=== PATIENT | male | born 1980 | race African-American/Black ===

== ENCOUNTER 2017-04-15 08:15 | Emergency (ER) | payer SELFPAY ==
[~2017-04-15] VITALS: Ht 188 cm; Wt 84.0 kg
[2017-04-15] MEDS ORDERED: ONDANSETRON HCL 4MG/2ML VIAL IV ONE (12:15)
[2017-04-15] MEDS ORDERED: SODIUM CHLORIDE 0.9% 1,000 ML IV ONE (12:15)
[2017-04-15 14:15] VITALS: BP 135/80
== END 2017-04-15 14:17 | disposition home or self-care (01) ==
LOC: ER 13:30
DX: A05.9 Bacterial foodborne intoxication, unspecified (principal); K29.70 Gastritis, unspecified, without bleeding
CPT/HCPCS: 96361; 96374; 99285; J2405; J7030; Z7610

== ENCOUNTER 2018-12-19 12:21 | Emergency (ER) | payer MEDICAID ==
[~2018-12-19] VITALS: Ht 188 cm; Wt 85.0 kg
[2018-12-19] MEDS ORDERED: HYDROCODONE/ACETAMINOPHEN 5/325MG TABLET PO ONE (15:15)
[2018-12-19 16:19] VITALS: BP 122/55
== END 2018-12-19 16:27 | disposition home or self-care (01) ==
LOC: ER 12:21
DX: S42.291A Other displaced fracture of upper end of right humerus, initial encounter for closed fracture (principal); W22.8XXA Striking against or struck by other objects, initial encounter; Y93.89 Activity, other specified; Y92.89 Other specified places as the place of occurrence of the external cause; Y99.8 Other external cause status
CPT/HCPCS: 73140; 99283

== ENCOUNTER 2019-05-02 16:02 | Emergency (ER) | payer MEDICAID, OTHER ==
[~2019-05-02] VITALS: Ht 188 cm; Wt 84.0 kg
[2019-05-02] MEDS ORDERED: NAPROXEN 375MG TABLET PO ONE (16:45)
[2019-05-02 16:46] VITALS: BP 128/68
== END 2019-05-02 17:53 | disposition home or self-care (01) ==
LOC: ER 17:40
DX: M72.2 Plantar fascial fibromatosis (principal); F17.210 Nicotine dependence, cigarettes, uncomplicated; Z98.890 Other specified postprocedural states
CPT/HCPCS: 99282

== ENCOUNTER 2019-09-07 09:10 | Emergency (ER) | payer MEDICAID, OTHER ==
[~2019-09-07] VITALS: Ht 190.5 cm; Wt 78.0 kg
[2019-09-07 10:49] LABS: BASOPHILS % 0.7 % (0.0-2.0); EOSINOPHILS % 5.2 % (0.0-5.0); HEMATOCRIT. 41.3 % (42.0-52.0); HEMOGLOBIN. 14.2 g/dL (14.0-18.0); LYMPHOCYTES % 33.8 % (20.0-50.0); MEAN CORPUSCULAR HEMOGLOBIN 31.5 pg (28.0-32.0); MEAN CORPUSCULAR VOLUME 91.4 fL (80.0-94.0); MEAN PLATELET VOLUME 8.3 fl (7.4-10.4); MONOCYTES % 11.8 % (2.0-8.0); NEUTROPHILS % 48.5 % (40.0-76.0); PLATELET 243 x1000/uL (130-400); RED BLOOD CELL COUNT 4.52 mill/uL (4.7-6.1); RED CELL DISTRIBUTION WIDTH 14.3 % (11.6-14.6)
[2019-09-07 11:03] LABS: CHLORIDE 109 mEq/L (98-107)
[2019-09-07 12:30] VITALS: BP 119/82
== END 2019-09-07 12:30 | disposition home or self-care (01) ==
LOC: ER 09:10
DX: R07.9 Chest pain, unspecified (principal); F17.200 Nicotine dependence, unspecified, uncomplicated
CPT/HCPCS: 36415; 71045; 80053; 83880; 84484; 85025; 93005; 99284; 99406; Z7610

== ENCOUNTER 2020-02-24 10:25 | Emergency (ER) | payer MEDICAID ==
[~2020-02-24] VITALS: Ht 190.5 cm; Wt 84.0 kg
[2020-02-24] MEDS ORDERED: SODIUM CHLORIDE 0.9% 1,000 ML IV ONE (11:09)
[2020-02-24] MEDS ORDERED: KETOROLAC 30MG/ML VIAL IV STA (11:09)
[2020-02-24 11:33] LABS: EOSINOPHILS % 6.9 % (0.0-5.0); HEMATOCRIT. 40.7 % (42.0-52.0); HEMOGLOBIN. 13.4 g/dL (14.0-18.0); LYMPHOCYTES % 35.8 % (20.0-50.0); MEAN CORPUSCULAR HEMOGLOBIN 30.9 pg (28.0-32.0); MEAN CORPUSCULAR VOLUME 93.3 fL (80.0-94.0); MEAN PLATELET VOLUME 8.5 fl (7.4-10.4); MONOCYTES % 10.4 % (2.0-8.0); NEUTROPHILS % 45.9 % (40.0-76.0); PLATELET 246 x1000/uL (130-400); RED BLOOD CELL COUNT 4.36 mill/uL (4.7-6.1); RED CELL DISTRIBUTION WIDTH 14.1 % (11.6-14.6)
[2020-02-24 11:39] LABS: CHLORIDE 110 mEq/L (98-107)
[2020-02-24 11:53] LABS: CLARITY URINE CLEAR (CLEAR); COLOR URINE YELLOW (YELLOW); KETONES URINE NEGATIVE (NEGATIVE); LEUKOCYTE ESTERASE URINE NEGATIVE (NEGATIVE); NITRITE URINE NEGATIVE (NEGATIVE); OCCULT BLOOD URINE NEGATIVE (NEGATIVE); PH URINE 5.5 (4.5-8.0); PROTEIN URINE NEGATIVE (NEGATIVE); SPECIFIC GRAVITY URINE 1.022 (1.005-1.030); UROBILINOGEN URINE 0.2 E.U./dL (0.2-1.0)
[2020-02-24 13:37] VITALS: BP 123/82
== END 2020-02-24 13:41 | disposition home or self-care (01) ==
LOC: ER 10:25
DX: M54.9 Dorsalgia, unspecified (principal); D17.9 Benign lipomatous neoplasm, unspecified; N39.0 Urinary tract infection, site not specified; R00.0 Tachycardia, unspecified; Z98.890 Other specified postprocedural states
CPT/HCPCS: 36415; 74176; 80053; 81003; 85025; 93005; 96374; 99285; J1885; J7030

== ENCOUNTER 2020-05-16 14:24 | Emergency (ER) | payer MEDICAID ==
[~2020-05-16] VITALS: Ht 190.5 cm; Wt 86.0 kg
[2020-05-16] MEDS ORDERED: KETOROLAC 30MG/ML VIAL IV STA (15:02)
[2020-05-16 15:18] LABS: BASOPHILS % 0.8 % (0.0-2.0); EOSINOPHILS % 1.3 % (0.0-5.0); HEMATOCRIT. 38.9 % (42.0-52.0); HEMOGLOBIN. 13.3 g/dL (14.0-18.0); LYMPHOCYTES % 27.9 % (20.0-50.0); MEAN CORPUSCULAR HEMOGLOBIN 31.4 pg (28.0-32.0); MEAN CORPUSCULAR VOLUME 91.7 fL (80.0-94.0); MEAN PLATELET VOLUME 8.3 fl (7.4-10.4); MONOCYTES % 9.9 % (2.0-8.0); NEUTROPHILS % 60.1 % (40.0-76.0); PLATELET 234 x1000/uL (130-400); RED BLOOD CELL COUNT 4.24 mill/uL (4.7-6.1); RED CELL DISTRIBUTION WIDTH 13.6 % (11.6-14.6)
[2020-05-16 15:24] LABS: CHLORIDE 109 mEq/L (98-107)
[2020-05-16 16:10] VITALS: BP 118/84
== END 2020-05-16 16:31 | disposition home or self-care (01) ==
LOC: ER 14:24
DX: R07.89 Other chest pain (principal); D17.9 Benign lipomatous neoplasm, unspecified; F17.200 Nicotine dependence, unspecified, uncomplicated
CPT/HCPCS: 36415; 71045; 80053; 83690; 84484; 85025; 93005; 96374; 99285; J1885

== ENCOUNTER 2021-05-14 12:58 | Emergency (ER) | payer MEDICAID ==
[~2021-05-14] VITALS: Ht 188 cm; Wt 88.2 kg
[2021-05-14 13:01] VITALS: BP 136/79
[2021-05-14] MEDS ORDERED: ACETAMINOPHEN 325MG TABLET PO STA (15:59)
[2021-05-14] MEDS ORDERED: VISCOUS LIDOCAINE 2% 15 ML UDC PO STA (15:59)
[2021-05-14] MEDS ORDERED: ONDANSETRON HCL 4MG/2ML INJ IV STA (15:59)
[2021-05-14] MEDS ORDERED: MAGNESIUM/ALUMINUM HYDROXIDE/SIMETHICONE 30ML UDC PO STA (15:59)
[2021-05-14] MEDS ORDERED: SODIUM CHLORIDE 0.9% 1,000 ML IV ONE (16:00)
[2021-05-14 16:32] LABS: BASOPHILS % 0.8 % (0.0-2.0); EOSINOPHILS % 2.5 % (0.0-5.0); HEMATOCRIT. 41.4 % (42.0-52.0); HEMOGLOBIN. 13.9 g/dL (14.0-18.0); LYMPHOCYTES % 42.4 % (20.0-50.0); MEAN CORPUSCULAR HEMOGLOBIN 31.1 pg (28.0-32.0); MEAN CORPUSCULAR VOLUME 92.7 fL (80.0-94.0); MEAN PLATELET VOLUME 7.9 fl (7.4-10.4); MONOCYTES % 6.6 % (2.0-8.0); NEUTROPHILS % 47.7 % (40.0-76.0); PLATELET 272 x1000/uL (130-400); RED BLOOD CELL COUNT 4.46 mill/uL (4.7-6.1); RED CELL DISTRIBUTION WIDTH 13.8 % (11.6-14.6)
[2021-05-14 16:38] LABS: CHLORIDE 109 mEq/L (98-107)
[2021-05-14 16:42] LABS: ETHANOL BLOOD < 10 mg/dL
[2021-05-14 16:47] LABS: CLARITY URINE CLEAR (CLEAR); COLOR URINE YELLOW (YELLOW); KETONES URINE NEGATIVE (NEGATIVE); LEUKOCYTE ESTERASE URINE NEGATIVE (NEGATIVE); NITRITE URINE NEGATIVE (NEGATIVE); OCCULT BLOOD URINE NEGATIVE (NEGATIVE); PH URINE 7.5 (4.5-8.0); PROTEIN URINE NEGATIVE (NEGATIVE); SPECIFIC GRAVITY URINE 1.016 (1.005-1.030); UROBILINOGEN URINE 0.2 E.U./dL (0.2-1.0)
[2021-05-14] MEDS ORDERED: IOHEXOL-300 100 ML BOTTLE ONE (18:38)
[2021-05-14] MEDS ORDERED: ONDA4TAB5 MT (18:54)
== END 2021-05-14 19:08 | disposition home or self-care (01) ==
LOC: ER 12:58
DX: R10.13 Epigastric pain (principal); R11.2 Nausea with vomiting, unspecified; F17.200 Nicotine dependence, unspecified, uncomplicated; F12.10 Cannabis abuse, uncomplicated; Z98.890 Other specified postprocedural states
CPT/HCPCS: 36415; 71045; 74177; 80053; 80320; 81003; 83605; 83690; 85025; 93005; 99285; J7030; Q9967; G0480

== ENCOUNTER 2021-11-10 12:10 | Emergency (ER) | payer MEDICAID ==
[~2021-11-10] VITALS: Ht 188 cm; Wt 88.0 kg
[~2021-11-10 12:10] MED LIST: ONDA4TAB5 MT
[2021-11-10] MEDS ORDERED: METHOCARBAMOL 500MG TABLET PO ONE (12:45)
[2021-11-10] MEDS ORDERED: KETOROLAC 60MG/2ML VIAL IM ONE (12:45)
[2021-11-10 12:52] VITALS: BP 112/78
[2021-11-10] MEDS ORDERED: METH-653 MT (12:57)
[2021-11-10] MEDS ORDERED: IBUP-2028 MT (12:57)
== END 2021-11-10 13:15 | disposition home or self-care (01) ==
LOC: ER 12:34
DX: M54.2 Cervicalgia (principal); F12.10 Cannabis abuse, uncomplicated
CPT/HCPCS: 96372; 99283; J1885

== ENCOUNTER 2022-02-16 14:27 | Emergency (ER) | payer MEDICAID ==
[~2022-02-16] VITALS: Ht 188 cm; Wt 86.0 kg
[~2022-02-16 14:27] MED LIST changes: +IBUP-2028 MT; +METH-653 MT
[2022-02-16] MEDS ORDERED: METHOCARBAMOL 500MG TABLET PO ONE (16:45)
[2022-02-16] MEDS ORDERED: KETOROLAC 60MG/2ML VIAL IM ONE (16:45)
[2022-02-16] MEDS ORDERED: LIDO1ADH23 TP (17:41)
[2022-02-16] MEDS ORDERED: NAPR-681 MT (17:41)
[2022-02-16] MEDS ORDERED: METH-773 MT (17:41)
[2022-02-16 17:51] VITALS: BP 112/71
== END 2022-02-16 17:51 | disposition home or self-care (01) ==
LOC: ER 14:27
DX: M54.2 Cervicalgia (principal); F12.10 Cannabis abuse, uncomplicated; Z79.899 Other long term (current) drug therapy
CPT/HCPCS: 96372; 99283; J1885